=== PATIENT | male | born 1965 | race Caucasian/White ===

== ENCOUNTER → 2017-06-24 | Outpatient (CLI) | payer BC ==
[2015-11-03 11:07] VITALS: BMI 38.7
[~2017-06-24] MED LIST: ACE500 PO; ACET500T68 PO; AMLO2.5T75 PO; AMOX-559 PO; ANUS PR; ASPI81TA94 PO; AZI250 PO; AZIT-9 PO; BIPAP; BUP150 PO; BUPR-126 PO; CEP500 PO; CEPH-13 PO; CEPH500C24 PO; CEPH500T7 PO; CLIN-75 PO; CLO5 PO; COREDS RIGHT EAR; CYCL10TA29 PO; DIPH0.5D12 IM; DM H180L19 PO; DOCU-299 PO; DOXY-179 PO; DOXY-228 PO; ERYOO OU; FLU60VIA31 IM; FLUT16SP20 NS; GUAI480S48 PO; GUALA600 PO; HIGH BLOOD PRES; HYDR-2966 PO; HYDR-385 PO; HYDR-4309 PO; HYDR12.561 PO; IBU200 PO; IBU800 PO; IBUP-1618 PO; IBUP-2708 PO; IBUP-56 PO; IBUP600T22 PO; IBUP800T37 PO; KET10 PO; LEVO-85 PO; LISI-355 PO; LISI-368 PO; LISI20TA29 PO; LOR5 PO; LOR5/325 PO; LORA-1456 PO; LORA-802 PO; LORA10CA3 PO; MELO7.5O3 PO; MET10 PO; METF-410 PO; NICO1PAT45 TD; NO; NO MEDS; NO ROUTINE MEDS; ONDA4TAB97 PO; OTC COLD MEDS; OXYC-865 PO; PANT40TA65 PO; PER PO; POTA-23 PO; POTA20TA85 PO; PRE20 PO; PRO25 PO; PROM12.546 PO; Return to Work; SERT-181 PO; SERT-184 PO; SIL50 PO; SUMA50TA34 PO; SUMA6PEN7 SQ; TOBR10DR10 OP; TRAM-420 PO; TUM500 PO; VALA100059 PO; [UNRECOGNIZED DRUG - REMARK]
== END ==
LOC: LAB 12:09
PROVIDERS: ATTEND Nurse Practitioner Primary Care
DX: M79.89 Other specified soft tissue disorders (principal)
CPT/HCPCS: 36415; 85379

== ENCOUNTER → 2017-09-03 | Outpatient (CLI) | payer BC ==
[2015-11-03 11:07] VITALS: BMI 38.7
[~2017-09-03] MED LIST changes: -METF-410 PO; +METF-411 PO
[2017-09-03 16:56] LABS: PLATELET COUNT, AUTOMATED 257 K/uL (150-450)
== END ==
LOC: LAB 16:32
PROVIDERS: ATTEND Nurse Practitioner Primary Care
DX: R53.83 Other fatigue (principal)
CPT/HCPCS: 36415; 82040; 82247; 82310; 82374; 82435; 82565; 82947; 84075; 84132; 84155; 84295; 84443; 84450; 84460; 84520; 85025

== ENCOUNTER → 2017-10-09 | Outpatient (CLI) | payer BC ==
[2015-11-03 11:07] VITALS: BMI 38.7
[~2017-10-09] MED LIST changes: +ONDA4TAB PO
[2017-10-09 12:41] LABS: PLATELET COUNT, AUTOMATED 268 K/uL (150-450)
== END ==
LOC: LAB 12:07
PROVIDERS: ATTEND Nurse Practitioner Family
DX: R10.9 Unspecified abdominal pain (principal)
CPT/HCPCS: 36415; 81001; 82040; 82247; 82310; 82374; 82435; 82565; 82947; 84075; 84132; 84155; 84295; 84450; 84460; 84520; 85025

== ENCOUNTER 2018-04-26 18:31 | Emergency (ER) | payer SELFPAY ==
[2015-11-03 11:07] VITALS: Wt 117.9 kg
[~2018-04-26 18:31] MED LIST changes: +CORED LEFT EAR; +CYCL-277 PO; +FLU60VIA41 IM; +FLUT16SP19 NS; -HYDR-4309 PO; +HYDR-653 PO; +LEVO750T44 PO; -METF-411 PO; +METF-450 PO
[2018-04-26 18:41] VITALS: BP 159/82
[2018-04-26 19:14] LABS: PLATELET COUNT, AUTOMATED 256 K/uL (150-450)
--- NOTE | 2018-04-26 20:06 | RADIOLOGY IMAGING REPORT ---
FACILITY: [facility] - [place] PATIENT NAME: Michael Joshi : 1965 MR: [id number] V: [id number] EXAM DATE: ORDERING PHYSICIAN: PLACIDO LOBO TECHNOLOGIST: Location: [facility] [place] Patient: Michael Joshi : 1965 Visit/Account:[id number] Date of Sevice: 04/26/2018 EXAMINATION: Chest radiographs 2 views HISTORY: Cough. COMPARISON: Chest radiograph from 04/23/[address] chest from 12/09/2016. FINDINGS: PA and lateral views of the chest are submitted. Lines/tubes: None. Lungs/pleura: No focal consolidation or pleural effusion. Heart: Negative. Mediastinum: Negative. Bony structures/body wall: Negative. IMPRESSION: No radiographic evidence of acute cardiopulmonary disease. Report Dictated By: Rosemarie Cordoba MD at 04/26/2018 7:54 PM Report E-Signed By: Rosemarie Cordoba MD at 04/26/2018 8:01 PM WSN:[id number]
--- NOTE | 2018-04-26 20:32 | EKG ---
FACILITY: [facility] PATIENT NAME: FRANKIE MEJIA : [id number] MR: [id number] V: [id number] EXAM DATE: ORDERING PHYSICIAN: PLACIDO LOBO TECHNOLOGIST: CHASE Test Reason : CHEST PAIN Blood Pressure : / mmHG Vent. Rate : 098 BPM Atrial Rate : 098 BPM P-R Int : 122 ms QRS Dur : 110 ms QT Int : 356 ms P-R-T Axes : 000 148 089 degrees QTc Int : 454 ms Normal sinus rhythm Low voltage QRS Left posterior fascicular block Abnormal ECG When compared with ECG of 04-NOV-2015 20:43, Left posterior fascicular block is now present Confirmed by Juan Jose Aguilera ([id number]) on 04/26/2018 11:12:50 PM Referred By: Confirmed By:Juan Jose Jeter
[2018-04-26] MEDS ORDERED: BENZ100C4 PO (21:05)
[2018-04-26] MEDS ORDERED: guaiFENesin/CODEINE 5 ML UDBTL PO ONE (21:05)
[2018-04-26] MEDS ORDERED: ROBC PO (21:05)
[2018-04-26] MEDS ORDERED: BENZONATATE 100 MG CAP PO ONE (21:05)
--- NOTE | 2018-04-26 21:05 | ER Report ---
History and Physical Time Seen By MD: 18:42 Hx. of Stated Complaint: COUGH AND OTHER COLD SYMPTOMS FOR 1 WEEK HPI/ROS CHIEF COMPLAINT: cough HISTORY OF PRESENT ILLNESS: This is a 52 year old male. He has been coughing for a week now. Congestion, sore throat and some fevers noted. Has come rib and abdominal pain due to coughing so much. Some nausea. No diarrhea or trouble urinating. Diffuse aches. Allergies: Coded Allergies: Penicillins (Verified Allergy, Mild, 03/08/17) morphine (Verified Adverse Reaction, Mild, NAUSEA/VOMITING, 03/08/17) Home Meds Active Scripts Guaifenesin/Codeine (GUAIFENESIN-CODEINE SYRUP) 5 Ml Syrp, 5 ML PO Q6H PRN for COUGH, #120 ML 0 Refills Prov:PLACIDO LOBO MD 04/26/18 Benzonatate 100 Mg Cap (TESSALON PERLE 100 MG CAP) 100 Mg Capsule, 100 MG PO TID, #15 CAP 0 Refills Prov:PLACIDO LOBO MD 04/26/18 Bupropion Hcl (WELLBUTRIN SR) 150 Mg Tablet.er, 1 TAB PO QAM, #90 TAB 3 Refills Prov:JOSE YI APRN-C 02/19/18 Lisinopril/Hydrochlorothiazide (LISINOPRIL-HCTZ 20-25 MG TAB) 1 Each Tablet, 1 TAB PO DAILY, #90 TAB 1 Refill Prov:JOSE YI APRN-C 01/30/18 Potassium Chloride (KLOR-CON M20) 20 Meq Tab.er.prt, 1 TAB PO QDAY, #90 TAB 1 Refill Prov:JOSE YI APRN-C 12/10/17 Discontinued Scripts Neomycin/Polymyxin B Sulf/Hc (Cortisporin [DSC] EAR SOLN) 10 Ml Solution, 4 GTT LEFT EAR TID for 7 Days, #1 BOT 0 Refills Prov:JOSE YI APRN-C 02/19/18 Levofloxacin 750 Mg Tab (LEVAQUIN 750 MG TAB) 750 Mg Tablet, 1 TAB PO DAILY for 5 Days, #5 TAB 0 Refills Prov:PARESH HESTER DNP, POLE MAKER-BC 01/20/18 Fluticasone Prop 50 Mcg Ns (FLONASE 50 MCG NS) 16 Gm [place].susp, 1 SPRAY NS BID for 10 Days, #1 BOT 0 Refills Prov:PARESH HESTER [facility], POLE MAKER-BC 01/20/18 Cyclobenzaprine Hcl (CYCLOBENZAPRINE HCL) 5 Mg Tablet, 0.5-1 TAB PO TID PRN for Tension Headache, #30 TAB 0 Refills Prov:JOSE YI APRN POLE MAKER-C 11/25/17 Ondansetron (ZOFRAN ODT) 4 Mg Tab.rapdis, 4 MG PO Q6H PRN for NAUSEA/VOMITING, #20 TAB.ANDREA Prov:JC LONG POLE MAKER 10/09/17 Sildenafil Citrate (VIAGRA) 50 Mg Tab, 1 TAB PO DAILY PRN for sexual activity, #5 TAB 5 Refills Take 1 tablet 30 min - 4 hours prior to sexual activity Prov:JOSE YI APRNP-C 05/21/17 Bipap Home (BIPAP HOME) Inh[place] silver, #1 Prov:JOSE YI APRN POLE MAKER-C 12/02/16 Reviewed Nurses Notes: Yes Hx Smoking: No Smoking Status: Never Smoker Exposure to Second Hand Smoke?: No Hx Substance Use Disorder: No Hx Alcohol Use: Yes Constitutional Vital Sign - Last 24 Hours 04/26/18 04/26/18 04/26/18 04/26/18 18:38 18:41 18:46 19:01 Temp 98.4 Pulse 102 100 105 Resp 24 B/P (MAP) 159/82 (107) 159/82 Pulse Ox 90 91 90 O2 Delivery Room Air 04/26/18 04/26/18 04/26/18 04/26/18 19:16 19:31 20:01 20:16 Pulse 105 103 101 92 Pulse Ox 87 86 86 95 04/26/18 20:17 O2 Flow Rate 2.0 Physical Exam General Appearance: Alert, no acute distress. Eyes: Pupils equal and round no injection. ENT: Normal oral mucosa. Moist mucous membranes. Neck: Neck is supple and non tender. Has some anterior cervical lymphadenopathy. Respiratory: Chest is non tender, lungs with rhonchi. Cardiac: regular rate and rhythm Gastrointestinal: Abdomen is soft and non tender, no masses, bowel sounds normal. Musculoskeletal: Extremities have full range of motion. Skin: No rashes or lesions. DIFFERENTIAL DIAGNOSIS: After history and physical exam differential diagnosis was considered for cough including but not limited to pulmonary infectious process Medical Decision Making Data Points Result Diagram: 04/26/18190504/26/181905 Laboratory Hematology Test 04/26/18 18:56 04/26/18 19:06 Influenza Virus Type A (PCR) Negative (NEGATIVE) Influenza Virus Type B (PCR) Negative (NEGATIVE) Red Blood Count 6.15 M/uL (4.00-5.60) Mean Corpuscular Volume 84.2 fL (80.0-96.0) Mean Corpuscular Hemoglobin 28.8 pg (26.0-33.0) Mean Corpuscular Hemoglobin Concent 34.3 g/dL (32.0-36.0) Red Cell Distribution Width 15.2 % (11.5-14.5) Mean Platelet Volume 8.6 fL (7.2-11.1) Neutrophils (%) (Auto) 59.5 % (39.4-72.5) Lymphocytes (%) (Auto) 23.5 % (17.6-49.6) Monocytes (%) (Auto) 11.7 % (4.1-12.4) Eosinophils (%) (Auto) 3.9 % (0.4-6.7) Basophils (%) (Auto) 1.4 % (0.3-1.4) Nucleated RBC Relative Count (auto) 0.1 /100WBC Neutrophils # (Auto) 6.1 K/uL (2.0-7.4) Lymphocytes # (Auto) 2.4 K/uL (1.3-3.6) Monocytes # (Auto) 1.2 K/uL (0.3-1.0) Eosinophils # (Auto) 0.4 K/uL (0.0-0.5) Basophils # (Auto) 0.1 K/uL (0.0-0.1) Nucleated RBC Absolute Count (auto) 0.01 K/uL Sodium Level 137 mmol/L (137-145) Potassium Level 3.2 mmol/L (3.5-5.0) Chloride Level 96 mmol/L (98-107) Carbon Dioxide Level 33 mmol/L (22-30) Blood Urea Nitrogen 13 mg/dl (9-21) Creatinine 0.90 mg/dl (0.66-1.25) Glomerular Filtration Rate Calc > 60.0 Random Glucose 144 mg/dl (75-110) Calcium Level 9.6 mg/dl (8.4-10.2) Total Bilirubin 0.5 mg/dl (0.2-1.3) Aspartate Amino Transf (AST/SGOT) 28 U/L (0-35) Alanine Aminotransferase (ALT/SGPT) 42 U/L (0-56) Alkaline Phosphatase 119 U/L (0-126) Troponin I < 0.012 ng/ml Total Protein 7.0 g/dl (6.3-8.2) Albumin 4.0 g/dl (3.5-5.0) Chemistry Test 04/26/18 18:56 04/26/18 19:06 Influenza Virus Type A (PCR) Negative (NEGATIVE) Influenza Virus Type B (PCR) Negative (NEGATIVE) White Blood Count 10.3 k/uL (4.5-11.0) Red Blood Count 6.15 M/uL (4.00-5.60) Hemoglobin 17.8 g/dL (14.0-18.0) Hematocrit 51.8 % (42.0-52.0) Mean Corpuscular Volume 84.2 fL (80.0-96.0) Mean Corpuscular Hemoglobin 28.8 pg (26.0-33.0) Mean Corpuscular Hemoglobin Concent 34.3 g/dL (32.0-36.0) Red Cell Distribution Width 15.2 % (11.5-14.5) Platelet Count 256 K/uL (150-450) Mean Platelet Volume 8.6 fL (7.2-11.1) Neutrophils (%) (Auto) 59.5 % (39.4-72.5) Lymphocytes (%) (Auto) 23.5 % (17.6-49.6) Monocytes (%) (Auto) 11.7 % (4.1-12.4) Eosinophils (%) (Auto) 3.9 % (0.4-6.7) Basophils (%) (Auto) 1.4 % (0.3-1.4) Nucleated RBC Relative Count (auto) 0.1 /100WBC Neutrophils # (Auto) 6.1 K/uL (2.0-7.4) Lymphocytes # (Auto) 2.4 K/uL (1.3-3.6) Monocytes # (Auto) 1.2 K/uL (0.3-1.0) Eosinophils # (Auto) 0.4 K/uL (0.0-0.5) Basophils # (Auto) 0.1 K/uL (0.0-0.1) Nucleated RBC Absolute Count (auto) 0.01 K/uL Glomerular Filtration Rate Calc > 60.0 Calcium Level 9.6 mg/dl (8.4-10.2) Total Bilirubin 0.5 mg/dl (0.2-1.3) Aspartate Amino Transf (AST/SGOT) 28 U/L (0-35) Alanine Aminotransferase (ALT/SGPT) 42 U/L (0-56) Alkaline Phosphatase 119 U/L (0-126) Troponin I < 0.012 ng/ml Total Protein 7.0 g/dl (6.3-8.2) Albumin 4.0 g/dl (3.5-5.0) EKG/Imaging EKG Interpretation 12 lead EKG: Rhythm: normal sinus rhythm, rate 98 [place]: normal QRS: There are complex, low voltage, left posterior fascicular block ST segments: normal Imaging EXAMINATION: Chest radiographs 2 views HISTORY: Cough. COMPARISON: Chest radiograph from 04/23/[address] chest from 12/09/2016. FINDINGS: PA and lateral views of the chest are submitted. Lines/tubes: None. Lungs/pleura: No focal consolidation or pleural effusion. Heart: Negative. Mediastinum: Negative. Bony structures/body wall: Negative. IMPRESSION: No radiographic evidence of acute cardiopulmonary disease. Report Dictated By: Rosemarie Cordoba MD at 04/26/2018 7:54 PM ED Course/Re-evaluation Clinical Indication for ER IV: IV Access ED Course Workup negative for acute problem. No sign of pneumonia. This appears to be a viral upper respiratory infection. Home with some guaifenesin with codeine and Tessalon Perles as needed for cough, rest with increase fluid intake. Decision to Disposition Date: Apr 26, 2018 Decision to Disposition Time: 21:04 Depart Departure Latest Vital Signs Vital Signs Date Time Temp Pulse Resp B/P (MAP) Pulse Ox O2 Delivery O2 Flow Rate FiO2 04/26/18 20:17 2.0 04/26/18 20:16 92 95 04/26/18 18:41 98.4 24 159/82 Room Air Impression: Primary Impression: Upper respiratory infection Condition: Improved Disposition: HOME OR SELF-CARE Referrals: JOSE YI APRN POLE MAKER-C (PCP) New Scripts Guaifenesin/Codeine (GUAIFENESIN-CODEINE SYRUP) 5 Ml Syrp 5 ML PO Q6H PRN for COUGH, #120 ML 0 Refills Prov: PLACIDO LOBO MD 04/26/18 Benzonatate 100 Mg Cap (TESSALON PERLE 100 MG CAP) 100 Mg Capsule 100 MG PO TID, #15 CAP 0 Refills Prov: PLACIDO LOBO MD 04/26/18 Patient Instructions: Upper Respiratory Infection (ED) Additional Instructions: Rest and increase fluid intake. Take Guaifenesin with Codeine, 1 teaspoon every 4 hours as needed for cough. Take Benzonatate 100mg capsules, 1 every 8 hours as needed for cough. Problem Qualifiers Primary Impression: Upper respiratory infection URI type: unspecified viral URI Qualified Codes: J06.9 - Acute upper respiratory infection, unspecified PLACIDO LOBO MD Apr 26, 2018 21:05
== END 2018-04-26 21:33 | disposition home or self-care (01) ==
LOC: ER 18:56
DX: J06.9 Acute upper respiratory infection, unspecified (principal); R94.31 Abnormal electrocardiogram [ECG] [EKG]
CPT/HCPCS: 71046; 82040; 82247; 82310; 82374; 82435; 82565; 82947; 84075; 84132; 84155; 84295; 84450; 84460; 84484; 84520; 85025; 87502; 93005; 99284

== ENCOUNTER → 2018-05-04 | Outpatient (CLI) | payer SELFPAY ==
[2015-11-03 11:07] VITALS: BMI 38.7
[~2018-05-04] MED LIST changes: +BENZ100C4 PO; +ROBC PO; +Work Note
== END ==
LOC: US 03:49
PROVIDERS: ATTEND Nurse Practitioner Family
DX: E04.1 Nontoxic single thyroid nodule (principal)

== ENCOUNTER → 2018-05-08 | Outpatient (CLI) | payer SELFPAY ==
[2015-11-03 11:07] VITALS: BMI 38.7
[2018-05-08 17:14] LABS: PLATELET COUNT, AUTOMATED 299 K/uL (150-450)
== END ==
LOC: LAB 16:36
PROVIDERS: ATTEND Nurse Practitioner Family
DX: R09.02 Hypoxemia (principal); R06.02 Shortness of breath
CPT/HCPCS: 36415; 82040; 82247; 82310; 82374; 82435; 82565; 82947; 83880; 84075; 84132; 84155; 84295; 84443; 84450; 84460; 84520; 85025; 85379

== ENCOUNTER → 2018-05-11 | Outpatient (CLI) | payer SELFPAY ==
[2015-11-03 11:07] VITALS: BMI 38.7
== END ==
LOC: LAB 15:33
PROVIDERS: ATTEND Nurse Practitioner Family
DX: E87.6 Hypokalemia (principal)
CPT/HCPCS: 36415; 82310; 82374; 82435; 82565; 82947; 84132; 84295; 84520

== ENCOUNTER 2018-05-12 07:48 | Emergency (ER) | payer SELFPAY ==
[2015-11-03 11:07] VITALS: Wt 117.9 kg
--- NOTE | 2018-05-12 08:14 | ER Report ---
History and Physical Time Seen By MD: 08:14 Hx. of Stated Complaint: SOB HPI/ROS 52 year old male with ongoing complaints of dyspnea for the past 2-3 weeks. He has been seen multiple times by his primary provider. He does use a CPAP at night. He is been afebrile. No chest pain or hypoxia. Does not complain of wheezing. He presents to the emergency department complaining of dyspnea. Says it has not worsened for the past 2 weeks, but is concerned that it has not improved. No fever chills. No orthopnea. No abdominal pain, nausea, vomiting, or diarrhea. Remainder of the 14 system rev: Yes Allergies: Coded Allergies: Penicillins (Verified Allergy, Mild, 05/12/18) morphine (Verified Adverse Reaction, Mild, NAUSEA/VOMITING, 05/12/18) Home Meds Active Scripts [Work Note] No Conflict Check Patient seen in the office today. Please excuse from work today, 04/29/18. Prov:PARESH HESTER DNP, EQUIPMENT RECORDS SUPERVISOR-BC 04/29/18 Benzonatate 100 Mg Cap (TESSALON PERLE 100 MG CAP) 100 Mg Capsule, 100 MG PO TID, #15 CAP 0 Refills Prov:PLACIDO LOBO MD 04/26/18 Bupropion Hcl (WELLBUTRIN SR) 150 Mg Tablet.er, 1 TAB PO QAM, #90 TAB 3 Refills Prov:JOSE YI APRNC 02/19/18 Lisinopril/Hydrochlorothiazide (LISINOPRIL-HCTZ 20-25 MG TAB) 1 Each Tablet, 1 TAB PO DAILY, #90 TAB 1 Refill Prov:JOSE YI APRN 01/30/18 Potassium Chloride (KLOR-CON M20) 20 Meq Tab.er.prt, 1 TAB PO QDAY, #90 TAB 1 Refill Prov:JOSE YI APRN 12/10/17 Discontinued Scripts Guaifenesin/Codeine (GUAIFENESIN-CODEINE SYRUP) 5 Ml Syrp, 5 ML PO Q6H PRN for COUGH, #120 ML 0 Refills Prov:PLACIDO LOBO MD 04/26/18 Reviewed Nurses Notes: Yes Old Medical Records Reviewed: Yes Hx Smoking: No Smoking Status: Never Smoker Exposure to Second Hand Smoke?: No Hx Substance Use Disorder: No Hx Alcohol Use: Yes Constitutional Vital Sign - Last 24 Hours 05/12/18 05/12/18 05/12/18 05/12/18 07:53 08:18 08:22 08:30 Temp 97.4 Pulse 94 89 Resp 20 19 B/P (MAP) 117/81 108/70 (83) 106/62 (77) Pulse Ox 88 87 O2 Delivery Room Air 05/12/18 05/12/18 05/12/18 05/12/18 08:33 08:48 09:00 09:00 Pulse 88 91 85 Resp 11 17 16 Pulse Ox 89 87 90 O2 Delivery Room Air 05/12/18 05/12/18 05/12/18 05/12/18 09:00 09:03 09:18 09:30 Pulse 82 90 Resp 14 18 B/P (MAP) 90/71 (77) 106/58 (74) Pulse Ox 98 87 05/12/18 05/12/18 05/12/18 05/12/18 09:33 09:48 10:00 10:03 Pulse 86 86 82 Resp 19 14 14 B/P (MAP) 104/69 (81) Pulse Ox 87 83 92 05/12/18 05/12/18 10:30 11:00 Pulse 82 86 Resp 25 19 B/P (MAP) 111/79 (90) 104/80 (88) Pulse Ox 85 92 Physical Exam General Appearance: The patient is alert, has no immediate need for airway protection and no current signs of toxicity. Eyes: Pupils equal and round no injection. Respiratory: Chest is non tender, lungs are clear to auscultation. Cardiac: regular rate and rhythm Gastrointestinal: Abdomen is soft and non tender, no masses, bowel sounds normal. Extremities have full range of motion and are non tender. Skin: No rashes or lesions. DIFFERENTIAL DIAGNOSIS: After history and physical exam differential diagnosis was considered for shortness of breath including but not limited to pulmonary infectious process, COPD, asthma, pulmonary embolus and congestive heart failure. Medical Decision Making EKG/Imaging Imaging X-ray: CXR was obtained. I viewed the images myself on the PACS system. My interpretation of the images is: normal xray without evidence of pna or edema. The radiologist interpretation had no clinically significant variation from this interpretation. ED Course/Re-evaluation ED Course This is a very pleasant 52-year-old male who appears well. He is not tachypneic. No hypoxia. Lung sounds are clear. Chest x-ray normal. I counseled him that this could be a virus which can take 2 weeks to months to improve. He is compliant with his nightly CPAP. He will continue with his current regimen, and follow-up with his primary care physician as already scheduled. Decision to Disposition Date: May 12, 2018 Decision to Disposition Time: 11:18 Depart Departure Latest Vital Signs Vital Signs Date Time Temp Pulse Resp B/P (MAP) Pulse Ox O2 Delivery O2 Flow Rate FiO2 05/12/18 11:00 86 19 104/80 (88) 92 05/12/18 09:00 Room Air 05/12/18 07:53 97.4 Impression: Primary Impression: Dyspnea Condition: Improved Disposition: HOME OR SELF-CARE Referrals: JOSE YI APRNP-C (PCP) Patient Instructions: Dyspnea (ED) Problem Qualifiers Primary Impression: Dyspnea Dyspnea type: unspecified Qualified Codes: R06.00 - Dyspnea, unspecified OTTONIEL PROCTOR MD May 12, 2018 08:14
[2018-05-12] MEDS ORDERED: ALBUTEROL/IPRATROPIUM 3 ML NEB NEB ONE (08:50)
--- NOTE | 2018-05-12 09:38 | RADIOLOGY IMAGING REPORT ---
FACILITY: [facility] PATIENT NAME: Michael Joshi : 1965 MR: [id number] V: [id number] EXAM DATE: ORDERING PHYSICIAN: OTTONIEL PROCTOR TECHNOLOGIST: Location: [facility] [place] Patient: Michael Joshi : 1965 Visit/Account:[id number] Date of Sevice: 05/12/2018 CHEST PA LAT History: Short of breath FINDINGS: Comparison studies: 04/26/2018 Tubes and Lines: None. Lungs and pleura: Well aerated. No evidence of focal consolidation or pleural effusions. Mediastinum: normal. Cardiac silhouette: normal . Osseous structures: Unremarkable for age . IMPRESSION: Normal chest Report Dictated By: Juancho Serrato MD at 05/12/2018 9:31 AM Report E-Signed By: Juancho Serrato MD at 05/12/2018 9:33 AM WSN:[email or web address]
[2018-05-12 11:00] VITALS: BP 104/80
--- NOTE | 2018-05-14 11:24 | EKG ---
FACILITY: [facility] - [place] PATIENT NAME: FRANKIE MEJIA : [id number] MR: [id number] V: [id number] EXAM DATE: ORDERING PHYSICIAN: OTTONIEL PROCTOR TECHNOLOGIST: Test Reason : respiratory problem Blood Pressure : / mmHG Vent. Rate : 094 BPM Atrial Rate : 094 BPM P-R Int : 160 ms QRS Dur : 100 ms QT Int : 374 ms P-R-T Axes : 113 056 032 degrees QTc Int : 467 ms Sinus rhythm with fusion complexes Otherwise normal ECG When compared with ECG of 26-APR-2018 18:47, fusion complexes are now present Left posterior fascicular block is no longer present Confirmed by OTIS HERNANDEZ ([id number]) on 05/14/2018 11:29:50 AM Referred By: Confirmed By:OTIS HERNANDEZ
[2018-05-14] MEDS ORDERED: BENZ100C4 PO (16:48)
[2018-05-14] MEDS ORDERED: PRED20TA6 PO (16:51)
== END 2018-05-12 11:12 | disposition home or self-care (01) ==
LOC: ER 08:18
DX: R06.00 Dyspnea, unspecified (principal)
CPT/HCPCS: 71046; 93005; 94640; 99284; J7620

== ENCOUNTER → 2018-05-27 | Outpatient (CLI) | payer MEDICARE ==
[2015-11-03 11:07] VITALS: BMI 38.7
[~2018-05-27] MED LIST changes: +PRED20TA6 PO
--- NOTE | 2018-05-27 15:56 | RADIOLOGY IMAGING REPORT ---
FACILITY: [facility] [place] PATIENT NAME: Michael Joshi : 1965 MR: [id number] V: [id number] EXAM DATE: ORDERING PHYSICIAN: JOSE YI TECHNOLOGIST: Location: [facility] [place] Patient: Michael Joshi : 1965 Visit/Account:[id number] Date of Sevice: 05/27/2018 THYROID HISTORY: History of thyroid nodules EXAMINATION: Thyroid ultrasound COMPARISON: Comparison made to previous study of 12/09/2016 FINDINGS: Thyroid size: Right lobe 4.8 x 1.7 x 2.2 cm Left lobe 3.9 x 1.7 x 1.6 cm Isthmus 0.7 cm Thyroid nodules: Right lobe - there is a hypoechoic nodule in the right thyroid gland measuring approximately 5 mm in size in the inferior lateral aspect of the right gland similar to the previous examination.. Left lobe - there is a somewhat hypoechoic/isoechoic nodule in the left thyroid gland in its po sterior mid aspect measuring 1.1 x 0.7 x 0.98 cm in size. This is increased in size from a previous measurement of 1 x 0.72 x 0.59 cm. Isthmus - none Thyroid vascularity: normal IMPRESSION: 1. Stable appearing nodule in the right gland. 2. Slight increase in the size of a nodule in the inferior aspect left gland but not greater than 50 %. Recommend continued yearly surveillance. Report Dictated By: Boo Phan MD at 05/27/2018 3:29 PM Report E-Signed By: Boo Phan MD at 05/27/2018 3:50 PM WSN:[id number]
== END ==
LOC: US 05-18 01:49
PROVIDERS: ATTEND Nurse Practitioner Family
DX: E04.2 Nontoxic multinodular goiter (principal)
CPT/HCPCS: 76536

== ENCOUNTER → 2018-06-08 | Outpatient (CLI) | payer MEDICARE ==
[2015-11-03 11:07] VITALS: BMI 38.7
== END ==
LOC: RESP 07:18
PROVIDERS: ATTEND Nurse Practitioner Family
DX: R09.02 Hypoxemia (principal); R06.02 Shortness of breath
CPT/HCPCS: 94060; 94726; 94729

== ENCOUNTER 2018-06-14 17:44 | Emergency (ER) | payer MEDICARE ==
[2015-11-03 11:07] VITALS: Wt 117.9 kg
--- NOTE | 2018-06-14 19:06 | ER Report ---
History and Physical Time Seen By MD: 19:04 Hx. of Stated Complaint: COUGH AND FEVER STARTING FRIDAY, COUGH AND BURNING URINE, GENERALIZED PAIN HPI/ROS CHIEF COMPLAINT: Cough and fevers HISTORY OF PRESENT ILLNESS: This is a 52-year-old male who presents to the emergency department for a cough and fevers. Patient states that Friday he developed a cough, aches and chills, progressively getting worse through the weekend. Intermittent nausea no vomiting. No diarrhea. No rashes. No chest pain, he does have a nonproductive cough. He also states he has some irritation when he urinates. REVIEW OF SYSTEMS: Constitutional: No fever, no chills. Eyes: No discharge. ENT: No sore throat. Cardiovascular: No chest pain, no palpitations. Respiratory: As above. Gastrointestinal: As above. Genitourinary: As above. Musculoskeletal: No back pain. Skin: No rashes. Neurological: No headache. Allergies: Coded Allergies: Penicillins (Verified Allergy, Mild, 06/14/18) morphine (Verified Adverse Reaction, Mild, NAUSEA/VOMITING, 06/14/18) Home Meds Active Scripts Albuterol Sulfate 0.083% (ALBUTEROL SULFATE 0.083%) 2.5 Mg/3 Ml Vial.neb, 2.5 MG INH Q4-6H PRN for SHORTNESS OF BREATH, #20 VIAL Prov:HUSEYIN LYONS-BC 06/14/18 Oseltamivir Phosphate (TAMIFLU) 75 Mg Cap, 75 MG PO BID, #9 CAP Prov:HUSEYIN LYONS-BC 06/14/18 Cyclobenzaprine Hcl (CYCLOBENZAPRINE HCL) 5 Mg Tablet, 0.5-1 TAB PO TID PRN for Tension Headache, #30 TAB 0 Refills Prov:JOSE YI APRNP-C 06/10/18 Bupropion Hcl (WELLBUTRIN SR) 150 Mg Tablet.er, 1 TAB PO QAM, #90 TAB 1 Refill Prov:JOSE YI APRNP-C 06/10/18 [Return to Work] No Conflict Check Prov:JOSE YI APRNP-C 05/15/18 Benzonatate 100 Mg Cap (TESSALON PERLE 100 MG CAP) 100 Mg Capsule, 100 MG PO TID, #15 CAP 0 Refills Prov:JOSE YI ORDER [facility]- 05/14/18 [Work Note] No Conflict Check Patient seen in the office today. Please excuse from work today, 04/29/18. Prov:PARESH HESTER [facility], HANDHOLE MACHINE OPERATOR-BC 04/29/18 Lisinopril/Hydrochlorothiazide (LISINOPRIL-HCTZ 20-25 MG TAB) 1 Each Tablet, 1 TAB PO DAILY, #90 TAB 1 Refill Prov:JOSE YI ORDER [facility]-C 01/30/18 Potassium Chloride (KLOR-CON M20) 20 Meq Tab.er.prt, 1 TAB PO QDAY, #90 TAB 1 Refill Prov:JOSE YI APRN [facility]- 12/10/17 Discontinued Scripts Prednisone (PREDNISONE) 20 Mg Tablet, 2 TAB PO QDAY, #10 TAB 0 Refills Prov:JOSE YI APRN [facility]- 05/14/18 Past Medical/Surgical History The patient has a past medical and surgical history of headaches, hypertension, sleep apnea, hypercholesterolemia, GERD, Z's, I'll hernia, arthritis, depression, umbilical hernia, appendectomy, cholecystectomy, kidney stones, right knee surgery, tonsillectomy. Reviewed Nurses Notes: Yes Hx Smoking: No Smoking Status: Never Smoker Exposure to Second Hand Smoke?: No Hx Substance Use Disorder: No Hx Alcohol Use: Yes Constitutional Vital Sign - Last 24 Hours 06/14/18 06/14/18 06/14/18 06/14/18 18:26 19:07 19:29 19:30 Temp 100.7 99.6 Pulse 116 117 114 Resp 20 20 20 B/P (MAP) 139/90 125/74 Pulse Ox 90 93 90 O2 Delivery Room Air Room Air Room Air 06/14/18 06/14/18 06/14/18 06/14/18 19:33 19:50 19:52 19:55 Temp 102.9 Pulse 122 ? Resp 20 06/14/18 06/14/18 06/14/18 06/14/18 20:00 20:05 20:10 20:15 Pulse ??? 117 ??? 118 B/P (MAP) 100/67 (78) Pulse Ox 83 85 88 06/14/18 06/14/18 06/14/18 06/14/18 20:20 20:25 20:30 20:35 Pulse 112 ? B/P (MAP) ???/??? (1665) Pulse Ox 94 06/14/18 06/14/18 06/14/18 06/14/18 20:40 20:45 20:50 20:51 Pulse 110 114 109 Pulse Ox 90 85 92 83 O2 Delivery Room Air 06/14/18 06/14/18 06/14/18 06/14/18 20:55 21:00 21:05 21:10 Pulse 109 ??? 111 107 Pulse Ox 91 94 90 93 06/14/18 06/14/18 06/14/18 06/14/18 21:15 21:20 21:25 21:30 Pulse 102 100 109 105 Pulse Ox 93 93 76 90 06/14/18 21:52 Temp 100.4 Physical Exam General Appearance: The patient is alert, has no immediate need for airway protection and no signs of toxicity. Eyes: Pupils equal and round no pallor or injection. ENT, Mouth: Mucous membranes are moist. Respiratory: Diminished throughout and expiratory wheezes in all baca. Cardiovascular: Regular rate and rhythm. Gastrointestinal: Abdomen is soft and non tender, no masses, bowel sounds normal. Neurological: Alert and oriented 4. Moving all extremities. Following. No focal neuro deficits. Skin: Warm and dry, no rashes. Musculoskeletal: Neck is supple non tender. Extremities are nontender, nonswollen and have full range of motion. DIFFERENTIAL DIAGNOSIS: After history and physical exam differential diagnosis was considered for adult fever including but not limited to viral syndromes including influenza, urinary tract infection, pneumonia and sepsis. Medical Decision Making Data Points Result Diagram: 06/14/18194206/14/181942 Laboratory Hematology Test 06/14/18 18:40 06/14/18 19:12 06/14/18 19:43 06/14/18 20:14 Urine Color Yellow Urine Clarity Clear Urine pH 5.0 pH (4.8-9.5) Urine Specific [place] 1.024 Urine Protein Negative mg/dL (NEGATIVE) Urine Glucose (UA) Negative mg/dL (NEGATIVE) Urine Ketones Negative mg/dL (NEGATIVE) Urine Blood Small (NEGATIVE) Urine Nitrite Negative (NEGATIVE) Urine Bilirubin Negative (NEGATIVE) Urine Urobilinogen 2.0 mg/dL (0.2-1.9) Urine Leukocyte Esterase Negative (NEGATIVE) Urine RBC 2 /HPF (0-2/HPF) Urine WBC <1 /HPF (0-5/HPF) Urine Squamous Epithelial Cells Few /LPF (</=FEW) Urine Bacteria Negative /HPF (NONE-FEW) Urine Mucus Few /HPF (NONE-FEW) Influenza Virus Type A (PCR) Positive (NEGATIVE) Influenza Virus Type B (PCR) Negative (NEGATIVE) Red Blood Count 5.87 M/uL (4.00-5.60) Mean Corpuscular Volume 85.2 fL (80.0-96.0) Mean Corpuscular Hemoglobin 28.7 pg (26.0-33.0) Mean Corpuscular Hemoglobin Concent 33.7 g/dL (32.0-36.0) Red Cell Distribution Width 15.3 % (11.5-14.5) Mean Platelet Volume 8.5 fL (7.2-11.1) Neutrophils (%) (Auto) 68.5 % (39.4-72.5) Lymphocytes (%) (Auto) 18.2 % (17.6-49.6) Monocytes (%) (Auto) 11.5 % (4.1-12.4) Eosinophils (%) (Auto) 0.6 % (0.4-6.7) Basophils (%) (Auto) 1.2 % (0.3-1.4) Nucleated RBC Relative Count (auto) 0.0 /100WBC Neutrophils # (Auto) 6.9 K/uL (2.0-7.4) Lymphocytes # (Auto) 1.8 K/uL (1.3-3.6) Monocytes # (Auto) 1.2 K/uL (0.3-1.0) Eosinophils # (Auto) 0.1 K/uL (0.0-0.5) Basophils # (Auto) 0.1 K/uL (0.0-0.1) Nucleated RBC Absolute Count (auto) 0.00 K/uL Sodium Level 138 mmol/L (137-145) Potassium Level 2.9 mmol/L (3.5-5.0) Chloride Level 99 mmol/L (98-107) Carbon Dioxide Level 31 mmol/L (22-30) Blood Urea Nitrogen 13 mg/dl (9-21) Creatinine 1.10 mg/dl (0.66-1.25) Glomerular Filtration Rate Calc > 60.0 Random Glucose 105 mg/dl (75-110) Calcium Level 8.7 mg/dl (8.4-10.2) Lactate 1.0 mmol/L (0.7-2.1) Chemistry Test 06/14/18 18:40 06/14/18 19:12 06/14/18 19:43 06/14/18 20:14 Urine Color Yellow Urine Clarity Clear Urine pH 5.0 pH (4.8-9.5) Urine Specific [place] 1.024 Urine Protein Negative mg/dL (NEGATIVE) Urine Glucose (UA) Negative mg/dL (NEGATIVE) Urine Ketones Negative mg/dL (NEGATIVE) Urine Blood Small (NEGATIVE) Urine Nitrite Negative (NEGATIVE) Urine Bilirubin Negative (NEGATIVE) Urine Urobilinogen 2.0 mg/dL (0.2-1.9) Urine Leukocyte Esterase Negative (NEGATIVE) Urine RBC 2 /HPF (0-2/HPF) Urine WBC <1 /HPF (0-5/HPF) Urine Squamous Epithelial Cells Few /LPF (</=FEW) Urine Bacteria Negative /HPF (NONE-FEW) Urine Mucus Few /HPF (NONE-FEW) Influenza Virus Type A (PCR) Positive (NEGATIVE) Influenza Virus Type B (PCR) Negative (NEGATIVE) White Blood Count 10.0 k/uL (4.5-11.0) Red Blood Count 5.87 M/uL (4.00-5.60) Hemoglobin 16.8 g/dL (14.0-18.0) Hematocrit 50.0 % (42.0-52.0) Mean Corpuscular Volume 85.2 fL (80.0-96.0) Mean Corpuscular Hemoglobin 28.7 pg (26.0-33.0) Mean Corpuscular Hemoglobin Concent 33.7 g/dL (32.0-36.0) Red Cell Distribution Width 15.3 % (11.5-14.5) Platelet Count 247 K/uL (150-450) Mean Platelet Volume 8.5 fL (7.2-11.1) Neutrophils (%) (Auto) 68.5 % (39.4-72.5) Lymphocytes (%) (Auto) 18.2 % (17.6-49.6) Monocytes (%) (Auto) 11.5 % (4.1-12.4) Eosinophils (%) (Auto) 0.6 % (0.4-6.7) Basophils (%) (Auto) 1.2 % (0.3-1.4) Nucleated RBC Relative Count (auto) 0.0 /100WBC Neutrophils # (Auto) 6.9 K/uL (2.0-7.4) Lymphocytes # (Auto) 1.8 K/uL (1.3-3.6) Monocytes # (Auto) 1.2 K/uL (0.3-1.0) Eosinophils # (Auto) 0.1 K/uL (0.0-0.5) Basophils # (Auto) 0.1 K/uL (0.0-0.1) Nucleated RBC Absolute Count (auto) 0.00 K/uL Glomerular Filtration Rate Calc > 60.0 Calcium Level 8.7 mg/dl (8.4-10.2) Lactate 1.0 mmol/L (0.7-2.1) Urinalysis Test 06/14/18 18:40 Urine Color Yellow Urine Clarity Clear Urine pH 5.0 pH (4.8-9.5) Urine Specific [place] 1.024 Urine Protein Negative mg/dL (NEGATIVE) Urine Glucose (UA) Negative mg/dL (NEGATIVE) Urine Ketones Negative mg/dL (NEGATIVE) Urine Blood Small (NEGATIVE) Urine Nitrite Negative (NEGATIVE) Urine Bilirubin Negative (NEGATIVE) Urine Urobilinogen 2.0 mg/dL (0.2-1.9) Urine Leukocyte Esterase Negative (NEGATIVE) Urine RBC 2 /HPF (0-2/HPF) Urine WBC <1 /HPF (0-5/HPF) Urine Squamous Epithelial Cells Few /LPF (</=FEW) Urine Bacteria Negative /HPF (NONE-FEW) Urine Mucus Few /HPF (NONE-FEW) EKG/Imaging EKG Interpretation 12 lead EKG: Time of EKG 2027. Rhythm: Sinus tachycardia, ventricular rate 112 bpm. Welch: normal QRS: normal ST segments: No ST depression or elevation identified. No significant changes from the 05/12/2018 EKG. Imaging Location: Patient: Michael Joshi : 1965 Visit/Account:[id number] Date of [place]: 06/14/2018 INDICATION: cough, wheezing. Cough and fever DATE: 06/14/2018 8:40 PM. TECHNIQUE: CHEST PA LAT COMPARISON: None FINDINGS: Heart size is normal. No effusion, consolidation, or pneumothorax. The central pulmonary arteries are prominent. IMPRESSION: No focal pneumonia. Report Dictated By: Isidro Munguia MD at 06/14/2018 8:40 PM Report E-Signed By: Isidro Munguia MD at 06/14/2018 8:42 PM WSN:[facility] ED Course/Re-evaluation Clinical Indication for ER IV: Hydration, IV Access ED Course The patient was admitted to room. A history and physical obtained. Differential diagnoses were considered. An IV was started. A 1 L normal saline bolus was given. A CBC, CMP, lactate and UA were collected. CBC unremarkable, chemistry showing potassium 2.9, patient was given a total of 60 mEq by mouth potassium. He does take potassium on a daily basis, also takes hydrochlorothiazide. Patient was positive for influenza a. Negative two-view chest x-ray. On room air patient's oxygen was 85%, he is supposed to wear oxygen 24/7 at home, he states that he's been doing this intermittently, he also wears BiPAP at home. He had significant improvement of aeration and shortness of breath after the DuoNeb was given. He was also febrile in the emergency department he was given 1 g of Tylenol. Patient remained normotensive, initially when the patient arrived, we discussed admitting to the hospital, I did discuss the case with Dr. Michaesl, the patient has ultimately decided to go home, he was given 75 mg tablet of Tamiflu, the remainder of the Tamiflu was sent to the patient's pharmacy, he was also given a prescription for a nebulizer machine which he will fill with his oxygen company tomorrow, he was also given a prescription for albuterol nebulizers. He was instructed to follow-up with his primary care 5 with in 1 week for reevaluation, return to ER for any other concerns or worsening symptoms, patient was agreeable with this plan of care and discharged home. Decision to Disposition Date: Jun 14, 2018 Decision to Disposition Time: 21:24 Depart Departure Latest Vital Signs Vital Signs Date Time Temp Pulse Resp B/P (MAP) Pulse Ox O2 Delivery O2 Flow Rate FiO2 06/14/18 21:52 100.4 06/14/18 21:30 105 90 06/14/18 20:51 Room Air 06/14/18 20:30 ???/??? (1665) 06/14/18 19:33 20 Impression: Primary Impression: Influenza A Additional Impression: Hypokalemia Condition: Improved Disposition: HOME OR SELF-CARE Referrals: JOSE YI APRN HANDHOLE MACHINE OPERATOR-C (PCP) New Scripts Albuterol Sulfate 0.083% (ALBUTEROL SULFATE 0.083%) 2.5 Mg/3 Ml Vial.neb 2.5 MG INH Q4-6H PRN for SHORTNESS OF BREATH, #20 VIAL Prov: HUSEYIN LYONSP-BC 06/14/18 Oseltamivir Phosphate (TAMIFLU) 75 Mg Cap 75 MG PO BID, #9 CAP Prov: HUSEYIN LYONS HANDHOLE MACHINE OPERATOR-BC 06/14/18 Departure Forms: ER Transition Record, Home Oxygen, Nebulizer RX, Home Oxygen Company Chosen by Patient: [employer] Durable Medical Equipment-Oxygen: Nebulizer Reason for Use/Diagnosis: Influenza A, hypoxia Start Date of the Order: Jun 14, 2018 Duration Home O2 Required: 30 Duration Units: Days Room Air Oxygen Saturation: 85 ER Prescribing Physician's Name: Other NPI Numbers for Local ER MDs: Other Medications Reconciliation, Patient Portal Information Patient Instructions: Hypokalemia (ED), Influenza (ED) Additional Instructions: Be sure to use the nebulizers as prescribed, be sure to contact your oxygen company tomorrow, they can set you up with the nebulizer machine. Where you're oxygen tonight as prescribed. We have given you one dose of Tamiflu tonight, the prescription for the night remaining doses will be at [facility]. Take ibuprofen and/or Tylenol as needed for aches and pains and fevers. Get plenty of rest. Follow-up with your primary care provider within one week for reevaluation. Drink plenty of water. Return to the ER for any other concerns or worsening symptoms. Problem Qualifiers HUSEYIN LYONS HANDHOLE MACHINE OPERATOR- Jun 14, 2018 19:06
[2018-06-14] MEDS ORDERED: ALBUTEROL/IPRATROPIUM 3 ML NEB NEB ONE (19:25)
[2018-06-14] MEDS ORDERED: NS(*) 0.9% 1000 ML BAG 1,000 ML IV ONE (19:25)
[2018-06-14] MEDS ORDERED: ONDANSETRON 4 MG/2 ML VIAL IVP ONE (19:40)
[2018-06-14] MEDS ORDERED: ACETAMINOPHEN 500 MG TAB PO ONE (19:55)
[2018-06-14 19:57] LABS: PLATELET COUNT, AUTOMATED 247 K/uL (150-450)
[2018-06-14] MEDS ORDERED: POTASSIUM CHL 20 MEQ TABCR PO SCH ×2 (20:20→21:25)
--- NOTE | 2018-06-14 20:40 | EKG ---
FACILITY: [facility] - [place] PATIENT NAME: FRANKIE MEJIA : [id number] MR: [id number] V: [id number] EXAM DATE: ORDERING PHYSICIAN: HUSEYIN LYONS TECHNOLOGIST: CHASE Test Reason : LOW K+ 2.9 Blood Pressure : / mmHG Vent. Rate : 112 BPM Atrial Rate : 112 BPM P-R Int : 162 ms QRS Dur : 102 ms QT Int : 334 ms P-R-T Axes : 040 058 046 degrees QTc Int : 455 ms Sinus tachycardia Otherwise normal ECG When compared with ECG of 12-MAY-2018 07:48, Relatively unchanged Confirmed by FELICE GLASER ([id number]) on 06/14/2018 9:25:59 PM Referred By: Confirmed By:FELICE GLASER
--- NOTE | 2018-06-14 20:46 | RADIOLOGY IMAGING REPORT ---
FACILITY: [facility] PATIENT NAME: Michael Joshi : 1965 MR: [id number] V: [id number] EXAM DATE: ORDERING PHYSICIAN: HUSEYIN LYONS TECHNOLOGIST: Location: [facility] Patient: Michael Joshi : 1965 Visit/Account:[id number] Date of Sevice: 06/14/2018 INDICATION: cough, wheezing. Cough and fever DATE: 06/14/2018 8:40 PM. TECHNIQUE: CHEST PA LAT COMPARISON: None FINDINGS: Heart size is normal. No effusion, consolidation, or pneumothorax. The central pulmonary arteries are prominent. IMPRESSION: No focal pneumonia. Report Dictated By: Isidro Munguia MD at 06/14/2018 8:40 PM Report E-Signed By: Isidro Munguia MD at 06/14/2018 8:42 PM WSN:[id number]
[2018-06-14] MEDS ORDERED: ALBU2.5V36 INH (21:25)
[2018-06-14] MEDS ORDERED: OSE75 PO (21:25)
[2018-06-14] MEDS ORDERED: OSELTAMIVIR PHOS 75 MG CAP PO ONE (21:25)
== END 2018-06-14 21:50 | disposition home or self-care (01) ==
LOC: ER 19:01
DX: J09.X2 Influenza due to identified novel influenza A virus with other respiratory manifestations (principal); E87.6 Hypokalemia
CPT/HCPCS: 36415; 71046; 81001; 83605; 85025; 87502; 93005; 94640; 96361; 96374; 99284; A9270; J2405; J7030; J7620; 82310; 82374; 82435; 82565; 82947; 84132; 84295; 84520; 96375

== ENCOUNTER → 2018-06-22 | Outpatient (CLI) | payer MEDICARE ==
[2015-11-03 11:07] VITALS: BMI 38.7
[~2018-06-22] MED LIST changes: +ALBU2.5V36 INH; +OSE75 PO
== END ==
LOC: RAD 06-15 00:59 → US 01:07
PROVIDERS: ATTEND Nurse Practitioner Family
DX: I51.7 Cardiomegaly (principal)
CPT/HCPCS: C8929; Q9957

== ENCOUNTER → 2018-07-16 | Outpatient (CLI) | payer MEDICARE ==
[2015-11-03 11:07] VITALS: BMI 38.7
[~2018-07-16] MED LIST changes: +METO25TA23 PO
[2018-07-16 17:14] LABS: PLATELET COUNT, AUTOMATED 294 K/uL (150-450)
[2018-07-16 17:31] LABS: LDL CHOLESTEROL 81 mg/dl
== END ==
LOC: LAB 16:53
PROVIDERS: ATTEND Nurse Practitioner Family
DX: R73.01 Impaired fasting glucose (principal); I10 Essential (primary) hypertension
CPT/HCPCS: 82040; 82247; 82310; 82374; 82435; 82465; 82565; 82947; 83036; 83718; 84075; 84132; 84155; 84295; 84443; 84450; 84460; 84478; 84520; 85025

== ENCOUNTER → 2018-07-20 | Outpatient (CLI) | payer MEDICARE, MEDICAID ==
[2015-11-03 11:07] VITALS: BMI 38.7
== END ==
LOC: LAB 13:13
PROVIDERS: ATTEND Nurse Practitioner Family
DX: E87.6 Hypokalemia (principal); I10 Essential (primary) hypertension
CPT/HCPCS: 36415; 82310; 82374; 82435; 82565; 82947; 84132; 84295; 84520

== ENCOUNTER → 2018-08-04 | Outpatient (CLI) | payer MEDICARE ==
[2015-11-03 11:07] VITALS: BMI 38.7
[~2018-08-04] MED LIST changes: -DIPH0.5D12 IM; +DIPH0.5S2 IM; +Glucometer
== END ==
LOC: LAB 13:32
PROVIDERS: ATTEND Nurse Practitioner Family
DX: I10 Essential (primary) hypertension (principal)
CPT/HCPCS: 36415; 82310; 82374; 82435; 82565; 82947; 84132; 84295; 84520

== ENCOUNTER 2018-08-27 14:31 | Outpatient (RCR) | payer MEDICARE ==
[2015-11-03 11:07] VITALS: Ht 170.2 cm
--- NOTE | 2018-08-27 16:58 | Medical Nutrition Therapy ---
Nutrition Anthropometrics Height (Inches): 67 Weight (Pounds): 260 BMI: 45.4 Dalton Nutrition Score: Dalton Nutrition Risk Score: Dietary Referral Nutrition Risk Factors: Nutrition Risk Comment: Physical Findings Physical Appearance: Morbidly Obese 40+ Skin Appearance Skin Appearance: Edema Edema Location Modifier: Edema Location: Type of Edema: Degree of Edema: Gastrointestinal Symptoms GI Symtoms: Tube Present: Bowel Sounds: Recent Bowel Pattern: Stool Characteristics: Nutrition/Food History new to T2DM, pt reports 50# wt gain past 2 years Alcohol Use: Never Exercise: No Nutritional Education Nutrition Education Topic: Diabetic Nutrition Learning Readiness: Eager Teaching Methods: Discussion, Handout, Demonstration Response to Teaching: Verbalize understanding, Reinforcement needed Teaching Recipient: Patient Nutrition Counseling: Pt with new dx T2DM. Reviewed pt self assessment of DM, reviewed What is T2DM, action of CHO and insulin. Demonstated glucometer, when to take BG and desired ranges. Provided 360 test where pt test BG 6X/day. Pt will complete and it will be reviewed at following session. Set up support plan. Set up classes and f/u visits. Nutrition Monitoring & Eval RD Patient Assessment Time: [address] Assessment Type: RD Education Nutritional Comment: provided 70 minutes diabetes education focusing on med management, glucometer educaiton, what is T2DM, support plan. Copies To Copies to: JOSE YI APRN-C ; WEN ROGERS August 27, 2018 16:58
[2018-08-31] MEDS ORDERED: AZIT-17 PO (17:28)
[2018-08-31] MEDS ORDERED: BENZ100C4 PO (17:28)
--- NOTE | 2018-09-24 09:31 | Medical Nutrition Therapy ---
Nutrition Anthropometrics Height (Inches): 67 Weight (Pounds): 260 BMI: 45.4 Dalton Nutrition Score: Dalton Nutrition Risk Score: Dietary Referral Nutrition Risk Factors: Nutrition Risk Comment: Physical Findings Physical Appearance: Morbidly Obese 40+ Skin Appearance Skin Appearance: Edema Edema Location Modifier: Edema Location: Type of Edema: Degree of Edema: Gastrointestinal Symptoms GI Symtoms: Tube Present: Bowel Sounds: Recent Bowel Pattern: Stool Characteristics: Nutritional Education Nutrition Education Topic: Diabetic Nutrition Learning Barriers: Cognitive (Recent illness pt may not have been as alert as usual.) Learning Readiness: Interested Teaching Methods: Discussion, Handout Response to Teaching: Verbalize understanding, Reinforcement needed Teaching Recipient: Patient Nutrition Counselin09/22/18-Discussed with pt plate method for controlling carbohydrate intake. Helped pt come up with meals that contained 60g CHO for each meal, and ways to limit CHO at each meal. Breakfast for him is typically cereal and milk, he said he checked it 2 hrs after and was below 140. Talked about having toast and peanut butter as another option. He occassionnally eats lunch and that is typically a 6" sub or peanut butter and jelly sandwich. For dinner he has a 6" sub or a burrito from [employer]. Talked about trying a burrito bowl instead of burrito. Also discussed 2 tacos with beans as another option. Gave pt plate method handout and wrote meals on the handout. Discussed alternatives to soda. Pt asked what was considered a low blood glucose. Discussed blood glucose concentrations <70 is low. Current concerns for the pt include inappropriate glucose control, pt ate additional CHO when his BG was elevated. Discussed with pt that will raise his blood glucose and we want to lower his blood glucose when it is elevated. Will need to continue to reinforce diabetes management concepts at classes.KENZIE Nutrition Monitoring & Eval RD Patient Assessment Time: [address] Assessment Type: RD Education Nutritional Comment: 09/22/18-Provided 60 minutes of MNT with dx of diabetes. Copies To Copies to: JOSE YI APRN ; BLAISE TA Sep 24, 2018 09:31
== END 2018-10-01 ==
LOC: DIET 14:31
PROVIDERS: ATTEND Nurse Practitioner Family
DX: E11.9 Type 2 diabetes mellitus without complications (principal); Z79.84 Long term (current) use of oral hypoglycemic drugs
CPT/HCPCS: 97802; G0108; G0109

== ENCOUNTER 2018-08-31 15:19 | Emergency (ER) | payer MEDICARE ==
[2015-11-03 11:07] VITALS: Wt 117.9 kg
--- NOTE | 2018-08-31 15:23 | ER Report ---
History and Physical Time Seen By MD: 15:23 HPI/ROS CHIEF COMPLAINT: Sore throat, cough HISTORY OF PRESENT ILLNESS: Patient is a 53-year-old male here with complaints of sore throat, cough for the past several days with rhinorrhea. Patient reports that he has significant pain with swallowing, intermittent dry cough. Patient de nies history of smoking or pulmonary disease. Patient is alert and oriented, in no acute distress at time of evaluation. Patient is afebrile, hemodynamically stable. REVIEW OF SYSTEMS: Constitutional: No fever, no chills. Eyes: No discharge. ENT: + sore throat, tender cervical lymphadenopathy, clear rhinorrhea Cardiovascular: No chest pain, no palpitations. Respiratory: + cough, + mild shortness of breath. Gastrointestinal: No abdominal pain, no vomiting. Genitourinary: No hematuria. Musculoskeletal: No back pain. Skin: No rashes. Neurological: No headache. Allergies: Coded Allergies: Penicillins (Verified Allergy, Mild, 06/14/18) morphine (Verified Adverse Reaction, Mild, NAUSEA/VOMITING, 06/14/18) Home Meds Active Scripts Benzonatate 100 Mg Cap (TESSALON PERLE 100 MG CAP) 100 Mg Capsule, 100 MG PO TID PRN for COUGH, #15 CAP Prov:LUISITO JUNG DO 08/31/18 Azithromycin (Z-PACK) 250 Mg Tablet, 0 PO QDAY, #6 DOSE-PACK Prov:LUISITO JUNG DO 08/31/18 Metoprolol Succinate (METOPROLOL SUCCINATE) 25 Mg Tab.er.24h, 2 TAB PO QDAY, #90 TAB 0 Refills Prov:JOSE YI APRN-Manpreet 08/20/18 [Glucometer] No Conflict Check Prov:JOSE YI APRN-C 08/04/18 Metformin Hcl (METFORMIN HCL) 500 Mg Tablet, 2 TAB PO BID, #360 TAB 0 Refills 1 tab daily x 1 week 1 tab am & pm x 1 week 2 tab am & 1 tab pm x 1 week 2 tab twice daily thereafter Prov:JOSE YI APRN-C 08/04/18 Lisinopril (LISINOPRIL) 20 Mg Tablet, 1 TAB PO QDAY, #90 TAB 0 Refills Prov:JOSE YI APRN-C 07/17/18 Sumatriptan Succinate (IMITREX) 50 Mg Tablet, 1 TAB PO DAILY PRN for mi, #9 TAB 0 Refills 1 tab daily as needed for migraine. If no effect after 2 hrs take a 2nd tablet. Do not exceed 2 tabs in 24 hrs. Prov:JOSE YI APRNP-C 07/16/18 Cyclobenzaprine Hcl (CYCLOBENZAPRINE HCL) 5 Mg Tablet, 0.5-1 TAB PO TID PRN for Tension Headache, #30 TAB 0 Refills Prov:JOSE YI APRNP-C 06/10/18 Bupropion Hcl (WELLBUTRIN SR) 150 Mg Tablet.er, 1 TAB PO QAM, #90 TAB 1 Refill Prov:JOSE YI APRN-C 06/10/18 Potassium Chloride (KLOR-CON M20) 20 Meq Tab.er.prt, 1 TAB PO QDAY, #90 TAB 1 Refill Prov:JOSE YI APRN-C 12/10/17 Hx Smoking: No Smoking Status: Never Smoker Exposure to Second Hand Smoke?: No Hx Substance Use Disorder: No Hx Alcohol Use: Yes Constitutional Vital Sign - Last 24 Hours 08/31/18 15:23 Temp 98.8 Pulse 104 Resp 18 B/P (MAP) 145/89 Pulse Ox 89 O2 Delivery Room Air Physical Exam General Appearance: The patient is alert, has no immediate need for airway protection and no signs of toxicity. NAD Eyes: Pupils equal and round no pallor or injection. ENT, Mouth: Mucous membranes are moist. Respiratory: There are no retractions, lungs are clear to auscultation. Cardiovascular: Regular rate and rhythm. Gastrointestinal: Abdomen is soft and non tender, no masses, bowel sounds normal. Neurological: No focal neuro deficits Skin: Warm and dry, no rashes. Musculoskeletal: Neck is supple non tender. Extremities are nontender, nonswollen and have full range of motion. DIFFERENTIAL DIAGNOSIS: After history and physical exam differential diagnosis was considered for pneumonia, bronchitis, sinusitis, strep pharyngitis, viral syndrome Medical Decision Making Data Points Laboratory Hematology Test 08/31/18 15:55 Group A Streptococcus (PCR) Negative (NEGATIVE) Chemistry Test 5/20/19 15:55 Group A Streptococcus (PCR) Negative (NEGATIVE) EKG/Imaging Imaging PATIENT NAME: Michael Joshi : 1965 MR: [id number] V: [id number] EXAM DATE: ORDERING PHYSICIAN: LUISITO JUNG TECHNOLOGIST: Location: [facility] Patient: Michael Joshi : 1965 Visit/Account:[id number] Date of Sevice: 08/31/2018 Exam type: CHEST PA LAT History: Shortness of breath and cough x3 days Comparison: June 14, 2018. Findings: The lungs are free of acute effusions, infiltrates or edema. The cardiac silhouette is stable. The trachea is in midline. There are surgical clips the right upper quadrant of abdomen. There are mild spondylotic changes of the thoracic spine IMPRESSION: 1. No acute cardiac pulmonary process is seen ED Course/Re-evaluation ED Course Patient is a 53-year-old male here with complaints of cough, sore throat, congestion which is been present for several days associated with subjective fe vers. Patient is hemodynamically stable at time of evaluation. There was mild erythema posterior oropharynx however strep test was found be negative. Chest x- ray was completed and showed no acute consolidation. Patient was given Benadryl viscous lidocaine for swish and spit for sore throat. Due to the patient's symptoms he was given 60 mg 1 time dose of prednisone for inflammation and started on a Z-Walter with Tessalon Perles for cough. Patient was stable throughout course. Close PCP follow-up recommended. Return precautions provided. Decision to Disposition Date: August 31, 2018 Decision to Disposition Time: 17:29 Depart Departure Latest Vital Signs Vital Signs Date Time Temp Pulse Resp B/P (MAP) Pulse Ox O2 Delivery O2 Flow Rate FiO2 08/31/18 15:23 98.8 104 18 145/89 89 Room Air Impression: Primary Impression: Sore throat Additional Impression: Cough Condition: Improved Disposition: HOME OR SELF-CARE Referrals: JOSE YI APRN COMPOUND MIXER-C (PCP) New Scripts Benzonatate 100 Mg Cap (TESSALON PERLE 100 MG CAP) 100 Mg Capsule 100 MG PO TID PRN for COUGH, #15 CAP Prov: LUISITO JUNG DO 08/31/18 Azithromycin (Z-PACK) 250 Mg Tablet 0 PO QDAY, #6 DOSE-PACK Prov: LUISITO JUNG DO 08/31/18 Patient Instructions: Acute Cough (GEN) Additional Instructions: Please drink plenty of water. Please completed the Z-Walter as prescribed. Please return promptly if you develop worsening cough, inability keep down food or fluids, difficulty swallowing. Please follow-up with her family doctor in the next 24-48 hours. Problem Qualifiers LUISITO JUNG DO August 31, 2018 15:23
[2018-08-31] MEDS ORDERED: LIDOCAINE 2% VISC SLN 15ML UDC PO ONE (16:00)
--- NOTE | 2018-08-31 16:36 | RADIOLOGY IMAGING REPORT ---
FACILITY: [facility] - [place] PATIENT NAME: Michael Joshi : 1965 MR: [id number] V: [id number] EXAM DATE: ORDERING PHYSICIAN: LUISITO JUNG TECHNOLOGIST: Location: [facility] [place] Patient: Michael Joshi : 1965 Visit/Account:[id number] Date of Sevice: 08/31/2018 Exam type: CHEST PA LAT History: Shortness of breath and cough x3 days Comparison: June 14, 2018. Findings: The lungs are free of acute effusions, infiltrates or edema. The cardiac silhouette is stable. The trachea is in midline. There are surgical clips the right upper quadrant of abdomen. There are mild spondylotic changes of the thoracic spine IMPRESSION: 1. No acute cardiac pulmonary process is seen Report Dictated By: Valerie Ellis MD at 08/31/2018 4:30 PM Report E-Signed By: Valerie Ellis MD at 08/31/2018 4:31 PM WSN:[id number]
[2018-08-31 17:00] VITALS: BP 149/97
[2018-08-31] MEDS ORDERED: BENZ100C4 PO (17:28)
[2018-08-31] MEDS ORDERED: AZIT-17 PO (17:28)
[2018-08-31] MEDS ORDERED: predniSONE 20 MG TAB PO ONE (17:30)
== END 2018-08-31 17:40 | disposition home or self-care (01) ==
LOC: ER 15:31
DX: J02.9 Acute pharyngitis, unspecified (principal); R05 Cough
CPT/HCPCS: 71046; 87653; 99283; A9270; J7512; Q0163

== ENCOUNTER → 2018-10-20 | Outpatient (CLI) | payer MEDICARE ==
[2015-11-03 11:07] VITALS: BMI 38.7
[~2018-10-20] MED LIST changes: +AZIT-17 PO; +LISI-374 PO
--- NOTE | 2018-10-20 14:32 | RADIOLOGY IMAGING REPORT ---
FACILITY: [facility] PATIENT NAME: Michael Joshi : 1965 MR: [id number] V: [id number] EXAM DATE: ORDERING PHYSICIAN: JOSE YI TECHNOLOGIST: Location: [facility] Patient: Michael Joshi : 1965 Visit/Account:[id number] Date of Sevice: 10/20/2018 Exam type: US VENOUS LOWER EXT LT History: left leg pain and edema Comparison: None. Findings: There is a 4.3 x 1.7 x 4 cm fatty replaced lymph node in the left groin The left lower extremity veins were imaged including the left common femoral vein, greater saphenous vein, superficial femoral vein, popliteal vein, posterior tibial vein, peroneal vein anterior tibial vein revealing no evidence of intrarenal thrombi the veins were compressible and demonstrated augment ation IMPRESSION: 1. No sonographic evidence of DVT involving the left lower extremity veins Report Dictated By: Valerie Ellis MD at 10/20/2018 2:24 PM Report E-Signed By: Valerie Ellis MD at 10/20/2018 2:25 PM WSN:[email or web address]
== END ==
LOC: RAD 09:33
PROVIDERS: ATTEND Nurse Practitioner Family
DX: R60.0 Localized edema (principal)

== ENCOUNTER 2018-10-25 14:03 | Emergency (ER) | payer MEDICARE ==
[2015-11-03 11:07] VITALS: Wt 117.0 kg
--- NOTE | 2018-10-25 14:14 | ER Report ---
History and Physical Time Seen By MD: 14:10 HPI/ROS CHIEF COMPLAINT: Left leg swelling HISTORY OF PRESENT ILLNESS: 53-year-old male comes emergency Department today with a complaint of left leg swelling. Patient states this started about a week ago saw his doctor 34 days got a negative ultrasound situated today felt a little warm to have an no swelling got worse so he came to the emergency department. Patient has complaint of swelling and pain to the posterior gastroc Area no history of trauma falls or additional complaints noted REVIEW OF SYSTEMS: Respiratory: No cough, no dyspnea. Cardiovascular: No chest pain, no palpitations. Gastrointestinal: No vomiting, no abdominal pain. Musculoskeletal: No back pain. Remainder of the 14 system rev: Yes Allergies: Coded Allergies: Penicillins (Verified Allergy, Mild, 10/25/18) morphine (Verified Adverse Reaction, Mild, NAUSEA/VOMITING, 10/25/18) Home Meds Active Scripts [Work Note] No Conflict Check Prov:JOSE YI APRN 10/23/18 Lisinopril (LISINOPRIL) 40 Mg Tablet, 1 TAB PO QDAY, #90 TAB 1 Refill Prov:JOSE YI APRN 10/20/18 Metoprolol Succinate (METOPROLOL SUCCINATE) 25 Mg Tab.er.24h, 2 TAB PO QDAY, #90 TAB 3 Refills Prov:JOSE YI APRN 10/19/18 [Glucometer] No Conflict Check Prov:JOSE YI APRN 08/04/18 Metformin Hcl (METFORMIN HCL) 500 Mg Tablet, 2 TAB PO BID, #360 TAB 0 Refills 1 tab daily x 1 week 1 tab am & pm x 1 week 2 tab am & 1 tab pm x 1 week 2 tab twice daily thereafter Prov:JOSE YI APRN 08/04/18 Sumatriptan Succinate (IMITREX) 50 Mg Tablet, 1 TAB PO DAILY PRN for mi, #9 TAB 0 Refills 1 tab daily as needed for migraine. If no effect after 2 hrs take a 2nd tablet. Do not exceed 2 tabs in 24 hrs. Prov:JOSE YI APRN 07/16/18 Cyclobenzaprine Hcl (CYCLOBENZAPRINE HCL) 5 Mg Tablet, 0.5-1 TAB PO TID PRN for Tension Headache, #30 TAB 0 Refills Prov:JOSE YI APRN-C 06/10/18 Bupropion Hcl (WELLBUTRIN SR) 150 Mg Tablet.er, 1 TAB PO QAM, #90 TAB 1 Refill Prov:JOSE YI APRNP-C 06/10/18 Discontinued Scripts Benzonatate 100 Mg Cap (TESSALON PERLE 100 MG CAP) 100 Mg Capsule, 100 MG PO TID PRN for COUGH, #15 CAP Prov:LUISITO JUNG S DO 08/31/18 Azithromycin (Z-PACK) 250 Mg Tablet, 0 PO QDAY, #6 DOSE-PACK Prov:LUISITO JUNG S DO 08/31/18 Potassium Chloride (KLOR-CON M20) 20 Meq Tab.er.prt, 1 TAB PO QDAY, #90 TAB 1 Refill Prov:JOSE YI APRN-Manpreet 12/10/17 Lisinopril (LISINOPRIL) 20 Mg Tablet, 1 TAB PO QDAY, #90 TAB 0 Refills Prov:JOSE YI APRN-C 07/17/18 Reviewed Nurses Notes: Yes Old Medical Records Reviewed: Yes Hx Smoking: No Smoking Status: Never Smoker Exposure to Second Hand Smoke?: No Hx Substance Use Disorder: No Hx Alcohol Use: Yes Constitutional Vital Sign - Last 24 Hours 10/25/18 14:12 Temp 97.3 Pulse 82 Resp 18 B/P (MAP) 136/91 Pulse Ox 91 O2 Delivery Room Air Physical Exam General appearance: Alert no distress. Respiratory: Chest is non tender, lungs are clear to auscultation. Cardiac: Regular rate and rhythm [ ] M examination patient's left lower extremity does show +1 pitting edema is symmetric to the right lower extremity some mild noted swelling in the [place] Area tenderness to the calf patient's leg shows some redness with a sofa when out red warm erythematous are well demarcated DIFFERENTIAL DIAGNOSIS: After history and physical exam differential diagnosis was considered for DVT versus cellulitis Medical Decision Making ED Course/Re-evaluation ED Course ED course medical decision making this is a 53-year-old male who comes to the emergency department with worsening swelling left lower extremity. Patient had negative DVT 3 days ago and repeat ultrasound today again negative no DVT patient will be treated as an early cellulitis with by mouth Keflex and follow- up with primary care Decision to Disposition Date: Oct 25, 2018 Decision to Disposition Time: 15:28 Depart Departure Latest Vital Signs Vital Signs Date Time Temp Pulse Resp B/P (MAP) Pulse Ox O2 Delivery O2 Flow Rate FiO2 10/25/18 14:12 97.3 82 18 136/91 91 Room Air Impression: Primary Impression: Cellulitis Condition: Condition Unchanged Disposition: HOME OR SELF-CARE Referrals: JOSE YI APRN [employer] (PCP) 5 Days New Scripts Sulfamethoxazole/Trimet 800-160 Mg Tab (BACTRIM DS TABLET) 1 Each Tablet 1 TAB PO Q12H, #14 MG 0 Refills TAKE ONE TABLET BY MOUTH EVERY TWELVE HOURS Prov: CAROLINA CAGE MD 10/25/18 Patient Instructions: Cellulitis (DC) CAROLINA CAGE MD Oct 25, 2018 14:14
--- NOTE | 2018-10-25 15:27 | RADIOLOGY IMAGING REPORT ---
FACILITY: [facility] PATIENT NAME: Michael Joshi : 1965 MR: [id number] V: [id number] EXAM DATE: ORDERING PHYSICIAN: CAROLINA CAGE TECHNOLOGIST: Location: [facility] Patient: Michael Joshi : 1965 Visit/Account:[id number] Date of Sevice: 10/25/2018 EXAMINATION: US VENOUS LOWER EXT LT COMPARISON: Ultrasound 10/20/2018. HISTORY: Left posterior calf and knee pain. FINDINGS: Standard left lower extremity Doppler ultrasound with color flow and spectral analysis is p erformed. The common femoral, femoral, and popliteal veins are widely patent and compress appropriately. The v isualized calf veins and the proximal greater saphenous vein are patent. No popliteal fluid collection. Left inguinal 4.7 x 1.7 x 4.0 cm enlarged but otherwise morphologicall y normal lymph node is redemonstrated and favored to be reactive. IMPRESSION: No left lower extremity deep venous thrombosis. Report Dictated By: Ayush Clarke MD at 10/25/2018 3:18 PM Report E-Signed By: Ayush Clarke MD at 10/25/2018 3:21 PM WSN:[id number]
[2018-10-25] MEDS ORDERED: SULF-198 PO (15:32)
[2018-10-25 15:39] VITALS: BP 137/90
[2018-10-29] MEDS ORDERED: COMPRESSION HOSE (16:27)
[2018-10-29] MEDS ORDERED: METH4TAB66 PO (16:27)
== END 2018-10-25 15:40 | disposition home or self-care (01) ==
LOC: ER 14:08
DX: L03.116 Cellulitis of left lower limb (principal)
CPT/HCPCS: 99284

== ENCOUNTER → 2018-11-02 | Outpatient (CLI) | payer MEDICARE ==
[2015-11-03 11:07] VITALS: BMI 38.7
[~2018-11-02] MED LIST changes: +COMPRESSION HOSE; +METH4TAB66 PO; +POTA20TA94 PO; +SULF-198 PO
[2018-11-02 17:11] LABS: PLATELET COUNT, AUTOMATED 269 K/uL (150-450)
--- NOTE | 2018-11-03 09:05 | EKG ---
FACILITY: [facility] PATIENT NAME: FRANKIE MEJIA : [id number] MR: [id number] V: [id number] EXAM DATE: ORDERING PHYSICIAN: JOSE YI TECHNOLOGIST: GURJIT Test Reason : Blood Pressure : / mmHG Vent. Rate : 077 BPM Atrial Rate : 077 BPM P-R Int : 166 ms QRS Dur : 118 ms QT Int : 424 ms P-R-T Axes : 049 051 042 degrees QTc Int : 479 ms Normal sinus rhythm Normal ECG When compared with ECG of 14-JUN-2018 20:28, No significant change was found Confirmed by Juan Jose Aguilera ([id number]) on 11/03/2018 8:34:26 PM Referred By: KD Confirmed By:Juan Jose Jeter
== END ==
LOC: RESP 16:28
PROVIDERS: ATTEND Nurse Practitioner Family
DX: M79.602 Pain in left arm (principal)
CPT/HCPCS: 36415; 82040; 82247; 82310; 82374; 82435; 82565; 82947; 84075; 84132; 84155; 84295; 84450; 84460; 84484; 84520; 85025

== ENCOUNTER → 2018-11-19 | Outpatient (CLI) | payer MEDICARE ==
[2015-11-03 11:07] VITALS: BMI 38.7
[~2018-11-19] MED LIST changes: +DICL100G7 TOP; +LISI-362 PO; +MELO-205 PO; +SPIR50TA33 PO
== END ==
LOC: LAB 09:18
PROVIDERS: ATTEND Nurse Practitioner Family
DX: E87.6 Hypokalemia (principal); I10 Essential (primary) hypertension
CPT/HCPCS: 36415; 82088; 82310; 82374; 82435; 82565; 82947; 84132; 84244; 84295; 84520

== ENCOUNTER → 2018-11-20 | Outpatient (CLI) | payer MEDICARE ==
[2015-11-03 11:07] VITALS: BMI 38.7
--- NOTE | 2018-11-20 13:57 | RADIOLOGY IMAGING REPORT ---
FACILITY: [facility] PATIENT NAME: Michael Joshi : 1965 MR: [id number] V: [id number] EXAM DATE: ORDERING PHYSICIAN: JOSE YI TECHNOLOGIST: Location: [facility] Patient: Michael Joshi : 1965 Visit/Account:[id number] Date of Sevice: 11/20/2018 Exam type: TIBIA FIBULA LEFT History: left lower leg pain x1 month Comparison: June 17, 2008. Findings: AP and lateral views were submitted. There is no evidence of acute fracture or dislocation. No evidence of a lytic or blastic bone lesion . Incidentally noted is a large osteophyte projecting along the superior border of the patella and e nthesopathic changes at the insertion the Achilles tendon. IMPRESSION: 1. Large osteophyte projects along the superior border the patella Enthesopathic changes at the insertion the Achilles tendon Report Dictated By: Valerie Ellis MD at 11/20/2018 1:48 PM Report E-Signed By: Valerie Ellis MD at 11/20/2018 1:50 PM WSN:[email or web address]
== END ==
LOC: RAD 09:12
PROVIDERS: ATTEND Nurse Practitioner Family
DX: M25.762 Osteophyte, left knee (principal); M76.62 Achilles tendinitis, left leg

== ENCOUNTER → 2018-12-03 | Emergency (ER) | payer MEDICARE, MEDICAID ==
[2015-11-03 11:07] VITALS: Wt 117.9 kg
[~2018-12-03] MED LIST changes: +ASPIRIN 81 MG CHEW PO ONE
--- NOTE | 2018-12-03 10:53 | ER Report ---
History and Physical Time Seen By MD: 10:48 Hx. 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 No sob, n/n/d. No diaphoresis. Symptoms resolved while walking and lasted 5 minutes. The day before he had unexplained diaphoresis without CP or SOB. Recently had Lisinopril decreased fro 40mg qd to 10mg qd. Has follow up appoitnment with PCM tomorrow. Also has had swelling in his left calf with 2 negative US. No PE risk factors. No other complaints. Remainder of the 14 system rev: Yes Allergies: Coded Allergies: Penicillins (Verified Allergy, Mild, 12/03/18) morphine (Verified Adverse Reaction, Mild, NAUSEA/VOMITING, 12/03/18) Home Meds Active Scripts [Work Note] No Conflict Check Prov:JOSE IY APRN 11/20/18 Lisinopril (LISINOPRIL) 10 Mg Tablet, 1 TAB PO QDAY, #30 TAB 0 Refills Stop 40mg lisinopril tablets Prov:JOSE YI APRN 11/18/18 [Compression Hose] No Conflict Check Prov:JOSE YI APRN 10/29/18 [Glucometer] No Conflict Check Prov:JOSE YI APRN 08/04/18 Metformin Hcl (METFORMIN HCL) 500 Mg Tablet, 2 TAB PO BID, #360 TAB 0 Refills 1 tab daily x 1 week 1 tab am & pm x 1 week 2 tab am & 1 tab pm x 1 week 2 tab twice daily thereafter Prov:JOSE YI APRN 08/04/18 Sumatriptan Succinate (IMITREX) 50 Mg Tablet, 1 TAB PO DAILY PRN for mi, #9 TAB 0 Refills 1 tab daily as needed for migraine. If no effect after 2 hrs take a 2nd tablet. Do not exceed 2 tabs in 24 hrs. Prov:JOSE YI APRN 07/16/18 Bupropion Hcl (WELLBUTRIN SR) 150 Mg Tablet.er, 1 TAB PO QAM, #90 TAB 1 Refill Prov:JOSE YI APRN [employer] 06/10/18 Discontinued Scripts Meloxicam (MELOXICAM) 7.5 Mg Tablet, 1-2 TAB PO QDAY for PAIN, #30 TAB 0 Refills Prov:JOSE YI APRN [employer] 11/24/18 Diclofenac Sodium (Diclofenac Sodium) 1 % Gel..gram., 4 GM TOP QID PRN for PAIN, #100 GM 1 Refill Prov:JOSE YI [facility] 11/20/18 Spironolactone (SPIRONOLACTONE) 50 Mg Tablet, 1 TAB PO DAILY, #30 TAB 0 Refills Prov:JOSE YI APRN [employer] 11/18/18 Reviewed Nurses Notes: Yes Old Medical Records Reviewed: Yes Hx Smoking: No Smoking Status: Never Smoker Exposure to Second Hand Smoke?: No Hx Substance Use Disorder: No Hx Alcohol Use: Yes Constitutional Vital Sign - Last 24 Hours 12/03/18 10:21 Temp 98.5 Pulse 90 Resp 16 B/P (MAP) 144/102 Pulse Ox 90 O2 Delivery Room Air Physical Exam General Appearance: The patient is alert, has no immediate need for airway protection and no current signs of toxicity. Eyes: Pupils equal and round no injection. Respiratory: Chest is non tender, lungs are clear to auscultation. Cardiac: regular rate and rhythm Gastrointestinal: Abdomen is soft and non tender, no masses, bowel sounds normal. Extremities have full range of motion. Mild swelling in left calf without TTP. Skin: No rashes or lesions. DIFFERENTIAL DIAGNOSIS: After history and physical exam differential diagnosis was considered for chest pain including but not limited to myocardial ischemia, pericarditis pulmonary embolus, chest wall pain, pleural inflammation and pulmonary infectious causes. Medical Decision Making Data Points Result Diagram: 12/03/18 1023 12/03/18 1023 Laboratory Hematology Test 12/03/18 10:23 White Blood Count 10.6 k/uL (4.5-11.0) Red Blood Count 4.30 M/uL (4.00-5.60) Hemoglobin 16.1 g/dL (14.0-18.0) Hematocrit 36.7 % (42.0-52.0) L Mean Corpuscular Volume 85.4 fL (80.0-96.0) Mean Corpuscular Hemoglobin 28.1 pg (26.0-33.0) Mean Corpuscular Hemoglobin Concent 32.5 g/dL (32.0-36.0) Red Cell Distribution Width 15.8 % (11.5-14.5) H Platelet Count 228 K/uL (150-450) Mean Platelet Volume 8.9 fL (7.2-11.1) Neutrophils (%) (Auto) 65.3 % (39.4-72.5) Lymphocytes (%) (Auto) 22.5 % (17.6-49.6) Monocytes (%) (Auto) 7.4 % (4.1-12.4) Eosinophils (%) (Auto) 3.8 % (0.4-6.7) Basophils (%) (Auto) 1.0 % (0.3-1.4) Nucleated RBC Relative Count (auto) 0.1 /100WBC Neutrophils # (Auto) 6.9 K/uL (2.0-7.4) Lymphocytes # (Auto) 2.4 K/uL (1.3-3.6) Monocytes # (Auto) 0.8 K/uL (0.3-1.0) Eosinophils # (Auto) 0.4 K/uL (0.0-0.5) Basophils # (Auto) 0.1 K/uL (0.0-0.1) Nucleated RBC Absolute Count (auto) 0.01 K/uL Chemistry Test 12/03/18 10:23 12/03/18 13:20 Sodium Level 139 mmol/L (137-145) Potassium Level 3.4 mmol/L (3.5-5.0) Chloride Level 103 mmol/L (98-107) Carbon Dioxide Level 27 mmol/L (22-30) Blood Urea Nitrogen 16 mg/dl (9-21) Creatinine 0.90 mg/dl (0.66-1.25) Glomerular Filtration Rate Calc > 60.0 Random Glucose 137 mg/dl (75-110) Calcium Level 9.2 mg/dl (8.4-10.2) Total Bilirubin 0.5 mg/dl (0.2-1.3) Aspartate Amino Transf (AST/SGOT) 29 U/L (0-35) Alanine Aminotransferase (ALT/SGPT) 45 U/L (0-56) Alkaline Phosphatase 115 U/L (0-126) Total Protein 7.0 g/dl (6.3-8.2) Albumin 4.1 g/dl (3.5-5.0) Troponin I < 0.012 ng/ml Coagulation Test 12/03/18 10:23 D-Dimer Quantitative (PE/DVT) < 0.27 ug/ml (0-0.50) ED Course/Re-evaluation ED Course Normal EKG. Normal chest x-ray. 2 negative troponins. Also with negative d-dimer and 2 previous negative ultrasounds for DVT of the left lower extremity. I do not think that 5 minutes of sharp chest pain is medical center representative of ACS. He does have risk factors of hypertension, obesity, and diabetes. He will likely need a stress test in the future. He voices understanding of this, and has an appointment with his primary care provider tomorrow. He will discuss the fin dings of today as well as request to schedule stress test. Decision to Disposition Date: Dec 03, 2018 Decision to Disposition Time: 13:59 Depart Departure Latest Vital Signs Vital Signs Date Time Temp Pulse Resp B/P (MAP) Pulse Ox O2 Delivery O2 Flow Rate FiO2 12/03/18 10:21 98.5 90 16 144/102 90 Room Air Impression: Primary Impression: Chest pain Condition: Improved Disposition: HOME OR SELF-CARE Referrals: JOSE YI APRN [employer] (PCP) Patient Instructions: Chest Pain (ED) Additional Instructions: Follow up tomorrow with your primary care provider as already scheduled. Return to the ER if symptoms return. Problem Qualifiers Primary Impression: Chest pain Chest pain type: unspecified Qualified Codes: R07.9 - Chest pain, unspecified OTTONIEL PROCTOR MD Dec 03, 2018 10:53
[2018-12-03 11:53] LABS: PLATELET COUNT, AUTOMATED 228 K/uL (150-450)
--- NOTE | 2018-12-03 12:04 | RADIOLOGY IMAGING REPORT ---
FACILITY: [facility] PATIENT NAME: Michael Joshi : 1965 MR: [id number] V: [id number] EXAM DATE: ORDERING PHYSICIAN: OTTONIEL PROCTOR TECHNOLOGIST: Location: [facility] Patient: Michael Joshi : 1965 Visit/Account:[id number] Date of Sevice: 12/03/2018 2 VIEWS CHEST INDICATION: chest pain COMPARISON: August 31, 2018 FINDINGS: Cardiomediastinal silhouette: Heart size within normal limits. Lungs: There is no focal infiltrate or lobar consolidation. There is no pneumothorax or pleural effusion. Bones and soft tissues: Stable IMPRESSION: 1. No acute cardiopulmonary process. Report Dictated By: Darek Cason MD at 12/03/2018 11:53 AM Report E-Signed By: Darek Cason MD at 12/03/2018 11:53 AM WSN:[id number]
[2018-12-03 14:19] VITALS: BP 120/84
--- NOTE | 2018-12-04 08:30 | EKG ---
FACILITY: [facility] PATIENT NAME: FRANKIE MEJIA : [id number] MR: [id number] V: [id number] EXAM DATE: ORDERING PHYSICIAN: OTTONIEL PROCTOR TECHNOLOGIST: Test Reason : Blood Pressure : / mmHG Vent. Rate : 090 BPM Atrial Rate : 090 BPM P-R Int : 166 ms QRS Dur : 104 ms QT Int : 386 ms P-R-T Axes : 033 069 035 degrees QTc Int : 472 ms Sinus rhythm Nonspecific interventricular conduction delay Nonspecific ST findings inferior leads Similar to previous EKG Confirmed by QASIM BUTCHER ([id number] on 12/04/2018 9:18:25 AM Referred By: Confirmed By:QASIM BUTCHER
== END ==
LOC: ER 10:32
DX: R07.9 Chest pain, unspecified (principal); I10 Essential (primary) hypertension; E11.9 Type 2 diabetes mellitus without complications
CPT/HCPCS: 71046; 84484; 85025; 85379; 99284; A9270; 82040; 82247; 82310; 82374; 82435; 82565; 82947; 84075; 84132; 84155; 84295; 84450; 84460; 84520; 93005